=== PATIENT | female | born 1965 | race Caucasian/White ===

== ENCOUNTER → 2024-05-02 09:27 | Outpatient (REF) | payer BC, SELFPAY | LOC: HWWDC 09:27 | PROVIDERS: ATTENDING PHYSICIAN Physician Assistant Medical | DX: Z12.31 Encounter for screening mammogram for malignant neoplasm of breast (principal); Z78.0 Asymptomatic menopausal state; R73.09 Other abnormal glucose | CPT/HCPCS: 77063; 77067; 77080 ==

== ENCOUNTER → 2025-05-29 09:14 | Outpatient (REF) | payer BC, SELFPAY | LOC: HWWDC 09:14 | PROVIDERS: ATTENDING PHYSICIAN Student in an Organized Health Care Education/Training Program; FAMILY PHYSICIAN Physician Assistant Medical | DX: M81.0 Age-related osteoporosis without current pathological fracture (principal); Z12.31 Encounter for screening mammogram for malignant neoplasm of breast | CPT/HCPCS: 77063; 77067; 77080 ==